=== PATIENT | female | born 1990 | race Caucasian/White ===

== ENCOUNTER 2021-06-09 18:51 | Emergency (ER) | payer OTHER, SELFPAY ==
[2021-06-09 20:05] VITALS: BP 135/92; PULSE 111; RESP 18; TEMP 36.8; O2SAT 99; BMI 36.2
--- NOTE | 2021-06-09 20:32 | HMH.EDUTC ---
[facility] [place] Clinical Impression: Cat bite Qualifiers: Encounter type: initial encounter Qualified Code(s): W55.01XA - Bitten by cat, initial encounter Disposition: Home, Self-Care Condition on Discharge: Good Instructions: Animal Bites, Doxycycline, DI for Cat Bite Additional Instructions: Clean area well with antibacterial soap and water and pat dry Take medication as prescribed Follow up immediately if any redness, drainage, signs of infection such as swelling and streaks Return if needed Straight to ER if any signs of infection or life threatening symptoms Prescriptions: Doxycycline Monohydrate [Doxycycline Chaffee 100mg Tab] 100 mg PO BID 14 Days #28 tab Transmission Status: Received by [facility] #[id number] Referrals: Nito Flowers [Primary Care Provider] - As needed Time of Disposition: 20:37 Medical Decision Making - Tod Inquiry Pt receiving controlled substance: No Tod was queried for this patient: No Vital Signs: 06/09/21 20:05 Temperature 98.3 F Temperature Source Oral Pulse Rate [Right Brachial] 111 H Respiratory Rate 18 Blood Pressure [Right Arm] 135/92 H Blood Pressure Mean [Right Arm] 106 Blood Pressure Source [Right Arm] Automatic Cuff Blood Pressure Position [Right Arm] Sitting 02 Sat by Pulse Oximetry 99 Oxygen Delivery Method Room Air Orders (Tests/Meds): ED MEDICATIONS Discontinued Medications Generic Name Dose Route Start Last Admin Trade Name Ander PRN Reason Stop Dose Admin Doxycycline Hyclate 100 mg 06/09/21 20:34 Doxycycline Hycl 100 Mg Tablet PO 06/09/21 20:35 ONCE ONE Tetanus/Reduced Diphtheria/Acell Pertussis 0.5 ml 06/09/21 20:31 Tet/Diphth/Pert-Adult 0.5ml Syringe IM 06/09/21 20:32 .ONCE ONE Medical Decision Narrative: cat bite area cleaned well with hibacleanse and saline patient tolerated well [facility] [place] - General Stated complaint: AO 06/09@1600 CAT BIT LEDT OZZY Time Seen by Provider: 06/09/21 20:20 Mode of Arrival: Ambulatory Source of Information: Patient Limitations: No Limitations Description of Symptoms (Recalled from Triage Doc. by RN): PATIENT STATES SHE WAS BITTEN BY A STRAY CAT ON HAND AT AROUND 1600 TODAY. SHE IS NOT UP TO DATE ON HER TETANUS HEENT Symptoms (Recalled from RN notes): No Resp Symptoms (Recalled from RN notes): No Skin Symptoms (Recalled from RN notes): Yes MS Symptoms (Recalled from RN notes): No Functional Status (Recalled from RN notes): WNL - History of Present Illness Provider Complaint: Patient states that she was at home and moved a tarp off her grill when a stray cat had been staying under there and bite her on her left hand States that she immediately cleaned the area and applied ice and came in to get it checked - Related Data Previous Rx's Medication Instructions Recorded Doxycycline Monohydrate 100 mg PO BID 14 Days #28 tab 06/09/21 [Doxycycline Chaffee 100mg Tab] Allergies Allergy/AdvReac Type Severity Reaction Status Date / Time amoxicillin Allergy Verified 06/09/21 20:31 azithromycin Allergy Verified 06/09/21 20:31 - Worker's Comp Is this a Worker's Comp case?: No [facility] History - Hepatitis A Screen Attestation statement:: This patient has been screened for Hepatitis A risk factors. I have reviewed the patient's past medical history: Yes ROS Obtained: Yes All systems reviewed & no additional complaints, Yes Systems reviewed as appropriate & no additional complaints - Constitutional Constitutional: Reports system reviewed and no additional complaints, except as docu, Denies body ache, Denies chills, Denies fever(s) - ENT Ears, Nose, Mouth, and Throat: Reports system reviewed and no additional complaints, except as docu - Cardiovascular Cardiovascular: Reports system reviewed and no additional complaints, except as docu - Respiratory Respiratory: Reports system reviewed and no additional complaints, except as docu - Gastrointestinal
[2021-06-09 20:55] VITALS: BP 135/92; PULSE 111; RESP 18; TEMP 36.8; O2SAT 99
== END 2021-06-09 21:00 | disposition home or self-care (01) ==
PROVIDERS: Emergency Provider Nurse Practitioner; PCP Pediatrics
DX: S61.432A Puncture wound without foreign body of left hand, initial encounter (principal); W55.01XA Bitten by cat, initial encounter; Z23 Encounter for immunization
CPT/HCPCS: 90471; 90715; 99213; G0463

== ENCOUNTER 2021-06-24 08:59 | Emergency (ER) | payer OTHER, SELFPAY ==
[2021-06-24 09:10] VITALS: BP 122/80; PULSE 121; RESP 21; TEMP 37.2; O2SAT 96; BMI 34.3
--- NOTE | 2021-06-24 09:20 | XR_ITS ---
FINAL REPORT CLINICAL HISTORY: pain..fall this morning while working out..shielded FINDINGS: Three views of the right knee reveal no evidence of fracture or dislocation. The bony alignment is normal. The joint spaces are preserved. There is no evidence of joint effusion. No localized soft tissue abnormality is identified. IMPRESSION: No acute abnormality identified. Reviewed, Interpreted and Dictated by Luis E Ahn III, MD Transcribed by Cleo Torres Authenticated by Luis E Ahn III, MD on 06/24/2021 10:54:28 AM [facility]
--- NOTE | 2021-06-24 09:54 | HMH.EDUTC ---
[facility] [place] Disposition Clinical Impression: Knee sprain Qualifiers: Encounter type: initial encounter Involved ligament of knee: unspecified ligament Laterality: right Qualified Code(s): S83.91XA - Sprain of unspecified site of right knee, initial encounter Disposition: Home, Self-Care Condition on Discharge: Good Instructions: How to Use Crutches, How To Perform RICE (Rest, Ice, Compress, Elevate) Additional Instructions: *weight bearing as tolerated *RICE, Rest the extremity, Ice 15-20 minutes 3-4 times daily, Compress- wear the ludin wrap as discussed as much as possible to help reduce swelling and pain, Elevate the extremity when at rest *Ludin wrap is for support and help control swelling, use it except in the shower. Be sure that is not to tight but not to loose either *Elevate when resting *Ibuprofen 600-800mg every 6-8 hours as needed for pain an inflammation. If need something more can take Tylenol in between doses of Ibuprofen to help Immediately follow up with your family doctor for new or worsening of symptoms, or no noticeable improvement over the next 3-5 days You can call back later this evening for the official reading of your xray Follow up with your Family Doctor and/or Orthopedics if no improvement or any worsening of symptoms Referrals: Nito Flowers [Primary Care Provider] - As needed Clark Omer MD [Staff Physician] - Miguel Box JR, MD [Physician] - Medical Decision Making - Tod Inquiry Pt receiving controlled substance: No Tod was queried for this patient: No Vital Signs: 06/24/21 09:10 06/24/21 09:59 Temperature 99.0 F 99.0 F Temperature Source Oral Pulse Rate 121 H Pulse Rate [Right Brachial] 121 H Respiratory Rate 21 21 Blood Pressure 122/80 Blood Pressure [Right Arm] 122/80 Blood Pressure Mean [Right Arm] 94 Blood Pressure Source [Right Arm] Automatic Cuff Blood Pressure Position [Right Arm] Sitting 02 Sat by Pulse Oximetry 96 Oxygen Delivery Method Room Air - Radiology Data #1 Image(s): Knee Image Reviewed: Yes I reviewed the patient's radiology image Preliminary Findings: No Fracture Seen [facility] [place] HPI - General Stated complaint: ao 06/24, right knee pain Time Seen by Provider: 06/24/21 09:54 Mode of Arrival: Ambulatory Source of Information: Patient Limitations: No Limitations Description of Symptoms (Recalled from Triage Doc. by RN): PATIENT C/O PAIN, REDNESS, SWELLING, WORSENING PAIN WITH MOVEMENT, AND A POPPING SENSATION TO RIGHT KNEE. SHE REPORTS WHILE SHE WAS WORKING OUT THIS MORNING, SHE JUMPED AND HEARD A POP IN THAT KNEE WHEN SHE CAME DOWN ON IT HEENT Symptoms (Recalled from RN notes): No Resp Symptoms (Recalled from RN notes): No Skin Symptoms (Recalled from RN notes): No MS Symptoms (Recalled from RN notes): Yes Functional Status (Recalled from RN notes): WNL - History of Present Illness Provider Complaint: Patient states that she was working out this morning and she was jumping up and as she came down she landed wrong and felt a pop in the inside of her knee States that now she is having pain when she walks or puts weight on it - Related Data Allergies Allergy/AdvReac Type Severity Reaction Status Date / Time amoxicillin Allergy Verified 06/09/21 20:31 azithromycin Allergy Verified 06/09/21 20:31 - Worker's Comp Is this a Worker's Comp case?: No [facility] History - Hepatitis A Screen Attestation statement:: This patient has been screened for Hepatitis A risk factors. I have reviewed the patient's past medical history: Yes Laterality Cases: Bilateral: Tonsillectomy - Social History Alcohol Intake: never Occupational Status: other ROS Obtained: Yes All systems reviewed & no additional complaints, Yes Systems reviewed as appropriate & no additional complaints - Constitutional Constitutional: Reports system reviewed and no additional complaints, except as docu, Denies body ache - ENT Ears, Nose, Mouth, and Throat: Reports sys
[2021-06-24 09:59] VITALS: BP 122/80; PULSE 121; RESP 21; TEMP 37.2; O2SAT 96
== END 2021-06-24 10:09 | disposition home or self-care (01) ==
PROVIDERS: Emergency Provider Nurse Practitioner; PCP Pediatrics
DX: S83.91XA Sprain of unspecified site of right knee, initial encounter (principal)
CPT/HCPCS: 73562; 99212; G0463

== ENCOUNTER 2023-05-14 15:50 | Emergency (ER) | payer OTHER, SELFPAY ==
[2023-05-14 16:00] VITALS: BP 110/89; PULSE 129; RESP 19; TEMP 39.2; O2SAT 100; BMI 30.4
--- NOTE | 2023-05-14 16:19 | ED_ITS ---
Discharge Plan Disposition Patient Disposition: Home, Self-Care Condition: Good Prescriptions Prescriptions: New azithromycin [Zithromax Z-Cristobal] 250 mg tablet See Rx Instructions .ROUTE .COMPLEX 5 Days Qty: 6 0RF Rx Instructions: For 250 mg dose pack: take 500 mg today (day 1), then 250 mg for 4 days (days 2-5) methylprednisolone [Medrol (Cristobal)] 4 mg tablets,dose pack See Rx Instructions .Route .COMPLEX 6 Days Qty: 21 0RF Rx Instructions: taper pack; No Action trazodone 50 mg tablet 50 mg PO DAILY olanzapine 5 mg tablet 5 mg PO DAILY hydroxyzine pamoate 50 mg capsule See Rx Instructions .ROUTE .COMPLEX Patient Comments: TAKE 1 CAPSULE BY MOUTH THREE TIMES DAILY NEEDED FOR ANXIETY Rx Instructions: TAKE 1 CAPSULE BY MOUTH THREE TIMES DAILY NEEDED FOR ANXIETY testosterone cypionate 200 mg/mL oil See Rx Instructions .ROUTE .COMPLEX Rx Instructions: see rx Referrals Follow up/Referrals: Nito Flowers [Primary Care Provider] - See instructions Activity Restrictions/Add. Instructions Additional Instructions/Restrictions: *Monitor Temp, Over the counter Motrin or Tylenol as directed/as needed Tylenol every 4 hours and Motrin every 6 hours (as long as your family doctor has told you that you can take it) for fever or pain. and straight to ER if unable to lower temp less than 101.0 after medication given *Warm salt water gargles may help to soothe the throat *Throat Lozenges? *Warm fluids like tea with honey may help to soothe the throat? *Sleep elevated *Humidifier/Vaporizer *If you did not take Penicillin shot or was unable to, start taking antibiotic immediately and make sure that you take it for the FULL length of time although you should start to feel better in 24-48 hours *change toothbrush and toothpaste 24-48 hours after starting to take antibiotics so you do not reinfect yourself Monitor Temp. Tylenol and/or Ibuprofen as needed. ER if fever is no less than 101 despite alternating Tylenol and Ibuprofen * Encourage fluids, water, Gatorade, powerade, pedialyte if /toddler/or child *Cold fluids, popsicles and ice cream may feel good on his throat Follow up IMMEDIATELY for new or worsening symptoms or no Noticeable improvement over the next 48-72 hours. 911 for difficulty breathing or swallowing Clinical Impressions Clinical Impression: Strep throat Stand Alone Forms Stand Alone Forms: Work/School Release Instructions Patient Instructions: Strep Throat, DI for Strep Throat Discharge ED [place]ol[place] M[place] [facility] [place] General Stated complaint: sore throat stiff neck fever 104 [facility] Mode of Arrival: Ambulatory Source of Information: Patient Limitations: No Limitations Time Seen by Provider: 05/14/23 16:19 Description of Symptoms (Recalled from Triage Doc. by RN): Pt's symptoms are fever, sore throat, body aches, stiff neck, and MED[place]. HEENT Symptoms (Recalled from RN notes): Yes Resp Symptoms (Recalled from RN notes): No Skin Symptoms (Recalled from RN notes): No MS Symptoms (Recalled from RN notes): No Functional Status (Recalled from RN notes): n/a History of Present Illness Provider Complaint: Patient states that she has been having worsening of sore throat over the last 3-4 days States that her throat was killing her yesterday an she went to the [facility] ED and they did a couple test not sure what and they told her they was negative and dx her with viral syndrome but she doesnt recall them checking her for strep throat, States yesterday evening her throat continued to get worse and pain was worse with swallowing and certain ways she would move her head, States that she has continued to have fevers and having blisters all in the back of her throat, body aches and chills Related Data Home Medications Medication Instructions Recorded Confirmed hydroxyzine pamoate 50 mg capsule See Rx Instructions .Route .COMPLEX 05/14/23 05/14/23 olanzapine 5 mg tablet 5 mg PO DAILY 05/14/23 05/14/23 testosterone cypionate 200 mg/mL See Rx Instructions .Route .COMPLEX 05/14/23 05/14/23 intramuscular oil trazodone 50 mg tablet 50 mg PO DAILY 05/14/23 05/14/23 Previous Rx's Medication Instructions Recorded azithromycin 250 mg tablet See Rx Instructions PO .COMPLEX 5 05/14/23 (Zithromax Z-Cristobal) days #6 tabs methylprednisolone 4 mg tablets in See Rx Instructions .Route 05/14/23 a dose pack (Medrol (Cristobal)) .COMPLEX 6 days #21 tabs Allergies Allergy/AdvReac Type Severity Reaction Status Date / Time amoxicillin Allergy Verified 05/14/23 16:16 Worker's Comp Is this a Worker's Comp case?: No [facility] Disclaimer: The information contained in this section may have been updated after the patient was seen, as this information can be updated by other users. Social History Smoking Status: Unknown if ever smoked alcohol intake: never current occupational status: other Travel in the last 8 weeks: None ROS Obtained: Yes All systems reviewed & no additional complaints except as documented and Yes Systems reviewed as appropriate & no additional complaints except as documented Constitutional Constitutional: Reports system reviewed and no additional complaints, except as documented, Reports as per HPI, Reports body ache, Reports chills, Reports fever(s) and Reports headache(s) ENT Ears, Nose, Mouth, and Throat: Reports system reviewed and no additional complaints, except as documented, Reports as per HPI, Reports headache(s) and Reports sore throat Cardiovascular Cardiovascular: Reports system reviewed and no additional complaints, except as documented and Reports as per HPI Respiratory Respiratory: Reports system reviewed and no additional complaints, except as documented and Reports as per HPI Gastrointestinal Gastrointestingal: Reports system reviewed and no additional complaints, except as documented and as per HPI Musculoskeletal Musculoskeletal: Reports system reviewed and no additional complaints, except as documented and Reports as per HPI Comments: states throat hurts when she turns her head certain ways but denies neck pain Neurologic Neurologic: Reports headache(s) Physical Exam General General appearance: alert and in no apparent distress ENT ENT exam: Present mucous membranes moist Expanded ENT Exam Throat exam: Present tonsillar erythema and tonsillar exudate Neck Neck exam: Present normal inspection, full ROM and trachea midline; Absent tenderness Respiratory Respiratory exam: Present normal lung sounds bilaterally; Absent respiratory distress or wheezes Cardiovascular Cardiovascular exam: Present regular rate, normal rhythm and tachycardia Neurological Exam Neurological exam: Present alert, oriented X3 and normal gait Medical Decision Making Tod Inquiry Pt receiving controlled substance: No Tod was queried for this patient: No Vital Signs: 05/14/23 16:00 Temperature 102.5 F H Temperature Source Oral Pulse Rate [Right Radial] 129 H Respiratory Rate 19 Blood Pressure [Right Arm] 110/89 Blood Pressure Mean [Right Arm] 96 Blood Pressure Source [Right Arm] Automatic Cuff Blood Pressure Position [Right Arm] Sitting 02 Sat by Pulse Oximetry 100 Oxygen Delivery Method Room Air
[2023-05-14 16:25] LABS: UTC Strep Screen (Rapid) Positive (Negative)
[2023-05-14] MEDS: ACETAMINOPHEN 325MG TAB 650 MG PO (16:29)
[2023-05-14 17:13] VITALS: BP 110/89; PULSE 129; RESP 19; TEMP 38.1; O2SAT 100
== END 2023-05-14 17:12 | disposition home or self-care (01) ==
PROVIDERS: Emergency Provider Nurse Practitioner; PCP Pediatrics
DX: J02.0 Streptococcal pharyngitis (principal); R07.0 Pain in throat; R50.9 Fever, unspecified; R51.9 Headache, unspecified
CPT/HCPCS: 87880; 99212; 99214; G0463